=== PATIENT | female | born 1945 | race Caucasian/White ===

== ENCOUNTER 2019-05-24 13:56 | Inpatient (IN) | payer BC, OTHER ==
[~2019-05-24] VITALS: Ht 165.1 cm; Wt 89.8 kg
[2019-05-24 14:02] VITALS: BP_SYST 125
[2019-05-24] MEDS ORDERED: FURO-150 PO (14:46)
[2019-05-24] MEDS ORDERED: VALS80TA2 PO (14:46)
[2019-05-24] MEDS ORDERED: METO25TA3 PO (14:46)
[2019-05-24] MEDS ORDERED: ASPI-1155 PO (14:46)
[2019-05-24 15:06] LABS: BASOPHILS % (AUTO) 0.5 % (0.0-2.0); EOSINOPHILS % (AUTO) 1.4 % (0.0-4.0); HEMATOCRIT 37.1 % (36-48); HEMOGLOBIN 12.9 g/dL (12.0-16.0); LYMPHOCYTES # (AUTO) 1.1 K/uL (1.0-5.5); MEAN CORPUSCULAR HEMOGLOBIN 33 pg (27-31); MEAN CORPUSCULAR HGB CONC 35 % (32-36); MEAN CORPUSCULAR VOLUME 96 fL (79.0-98.0); MONOCYTES % (AUTO) 4.4 % (1.7-9.3); NEUTROPHILS # (AUTO) 13.6 K/uL (1.8-7.7); NEUTROPHILS % (AUTO) 86.7 % (40.0-70.0); PLATELET COUNT (AUTO) 359 K/uL (130-430); RED BLOOD CELL COUNT(AUTO) 3.85 MIL/uL (4.2-6.2); RED CELL DISTRIBUTION WIDTH 15.2 % (9.0-15.0); WHITE BLOOD COUNT (AUTO) 15.7 K/uL (4.8-10.8)
[2019-05-24 15:07] LABS: BASOPHILS # (AUTO) 0.1 K/uL (0.0-0.2); EOSINOPHILS # (AUTO) 0.2 K/uL (0.0-0.4); MONOCYTES # (AUTO) 0.7 K/uL (0.0-1.0)
[2019-05-24 15:17] LABS: CLARITY/URINE SLIGHTLY HAZY (CLEAR); COLOR,URINE BROWN (YELLOW)
[2019-05-24 15:18] LABS: BILIRUBIN,URINE 3+ (NEGATIVE); BLOOD, URINE NEGATIVE (NEGATIVE); GLUCOSE,URINE TRACE (NEGATIVE); KETONES,URINE TRACE (NEGATIVE); LEUKOCYTE ESTERASE ,URINE NEGATIVE (NEGATIVE); NITRITE, URINE NEGATIVE (NEGATIVE); PH,URINE 6.5 (5.0-8.0); PROTEIN URINE 1+ (NEGATIVE)
[2019-05-24 15:33] LABS: BACTERIA,URINE FEW /HPF (None Seen); RBC,URINE 0-3 /HPF (0-3)
[2019-05-24 15:34] LABS: COARSE GRANULAR CASTS,URINE 0-10 /LPF (None Seen)
[2019-05-24 15:38] LABS: MUCUS,URINE None Seen /LPF (None Seen)
[2019-05-24 15:53] LABS: SODIUM SERUM 137 mmol/L (136-145)
[2019-05-24 15:54] LABS: ANION GAP 14 (5-15); CHLORIDE 102 mmol/L (98-107); POTASSIUM 2.2 mmol/L (3.5-5.1)
[2019-05-24 15:55] LABS: CALCIUM 7.9 mg/dL (8.4-11.0); CREATININE 1.26 mg/dL (0.55-1.30); GLUCOSE 106 mg/dL (70-99); UREA NITROGEN, BLOOD 17 mg/dL (8-21)
[2019-05-24 15:57] LABS: ALANINE AMINOTRANSFERASE 91 U/L (12-78)
[2019-05-24] MEDS ORDERED: POTASSIUM CHLORIDE 20 MEQ TAB.PRT.SR PO ONE (16:00)
[2019-05-24] MEDS ORDERED: KCL 20 mEq in 100 mL (PREMIX) 100 ML IV ONE (16:00)
[2019-05-24] MEDS ORDERED: NACL 0.9% 1,000 ML IV ONE (16:00)
[2019-05-24 16:29] LABS: ASPARTATE AMINOTRANSFERASE 247 U/L (10-37)
[2019-05-24 16:42] LABS: INR 3.1 (0.8-1.2)
[2019-05-24 16:43] LABS: PROTHROMBIN TIME 30.8 SECS (9.5-12.5)
[2019-05-24 16:50] LABS: ALBUMIN 1.8 g/dL (3.4-4.8); LIPASE 56 U/L (73-393)
[2019-05-24] MEDS ORDERED: IOHEXOL 100 ML IV ONE (16:57)
[2019-05-24 17:32] VITALS: BP_SYST 127
[2019-05-24] MEDS ORDERED: FLU VACC TS2019(65UP)/MF59C/PF 45 MCG/0.5 ML SYRINGE I.M. PRN (17:45)
[2019-05-24] MEDS ORDERED: PIPERACILLIN/TAZO 3.375/DEX-IS 50 ML IV ONE (18:30)
[2019-05-24 20:00] VITALS: BP_SYST 108
[2019-05-24] MEDS: KCL 20 mEq in NS 1000 mL 1,000 ML IV SCH (20:50)
[2019-05-24] MEDS: PIPERACILLIN/TAZO 3.375/DEX-IS 50 ML IV SCH (23:07)
[2019-05-25 00:33] VITALS: BP_SYST 102
[2019-05-25] MEDS: KCL 20 mEq in NS 1000 mL 1,000 ML IV SCH ×3 (05:35→23:23)
[2019-05-25] MEDS: PIPERACILLIN/TAZO 3.375/DEX-IS 50 ML IV SCH ×4 (05:35→23:23)
[2019-05-25 07:14] LABS: HEPATITIS A AB, IgM Negative (Negative); HEPATITIS B CORE AB, IgM Negative (Negative); HEPATITIS B SURFACE AG Negative (Negative)
[2019-05-25 07:23] LABS: BASOPHILS % (AUTO) 0.3 % (0.0-2.0); EOSINOPHILS # (AUTO) 0.1 K/uL (0.0-0.4); HEMATOCRIT 34.1 % (36-48); HEMOGLOBIN 11.8 g/dL (12.0-16.0); LYMPHOCYTES # (AUTO) 0.7 K/uL (1.0-5.5); LYMPHOCYTES % (AUTO) 4.5 % (20.5-51.5); MEAN CORPUSCULAR HEMOGLOBIN 34 pg (27-31); MEAN CORPUSCULAR HGB CONC 35 % (32-36); MEAN CORPUSCULAR VOLUME 97 fL (79.0-98.0); MONOCYTES # (AUTO) 0.5 K/uL (0.0-1.0); MONOCYTES % (AUTO) 3.7 % (1.7-9.3); NEUTROPHILS # (AUTO) 13.2 K/uL (1.8-7.7); NEUTROPHILS % (AUTO) 90.5 % (40.0-70.0); PLATELET COUNT (AUTO) 270 K/uL (130-430); RED BLOOD CELL COUNT(AUTO) 3.52 MIL/uL (4.2-6.2); WHITE BLOOD COUNT (AUTO) 14.6 K/uL (4.8-10.8)
[2019-05-25 07:52] LABS: INR 4.2 (0.8-1.2); PROTHROMBIN TIME 40.9 SECS (9.5-12.5)
[2019-05-25 08:05] LABS: ALANINE AMINOTRANSFERASE 78 U/L (12-78); ALBUMIN 1.6 g/dL (3.4-4.8); ANION GAP 13 (5-15); ASPARTATE AMINOTRANSFERASE 193 U/L (10-37); CALCIUM 7.6 mg/dL (8.4-11.0); CHLORIDE 108 mmol/L (98-107); GLUCOSE 108 mg/dL (70-99); SODIUM SERUM 141 mmol/L (136-145); UREA NITROGEN, BLOOD 18 mg/dL (8-21)
[2019-05-25 08:24] VITALS: BP_SYST 112
[2019-05-25 08:28] LABS: POTASSIUM 2.5 mmol/L (3.5-5.1)
[2019-05-25 08:29] LABS: TOTAL BILIRUBIN 25.2 mg/dL (0.0-1.0)
[2019-05-25] MEDS ORDERED: POTASSIUM CHLORIDE 40 MEQ in NS 250 ML IV ONE ×2 (09:15→14:00)
[2019-05-25 12:41] VITALS: BP_SYST 122
[2019-05-25] MEDS: PHYTONADIONE 10 MG in NS 50 ML IV SCH (15:17)
[2019-05-25 16:57] VITALS: BP_SYST 130
[2019-05-25 20:00] VITALS: BP_SYST 118
[2019-05-26 00:51] VITALS: BP_SYST 99
[2019-05-26] MEDS: PIPERACILLIN/TAZO 3.375/DEX-IS 50 ML IV SCH (05:26)
[2019-05-26 07:06] LABS: FOLATE (FOLIC ACID) 8.2 ng/mL (>3.0)
[2019-05-26 08:15] VITALS: BP_SYST 127
[2019-05-26 08:33] LABS: BASOPHILS % (AUTO) 0.3 % (0.0-2.0); EOSINOPHILS # (AUTO) 0.1 K/uL (0.0-0.4); EOSINOPHILS % (AUTO) 1.2 % (0.0-4.0); HEMATOCRIT 32.1 % (36-48); HEMOGLOBIN 11.2 g/dL (12.0-16.0); LYMPHOCYTES # (AUTO) 0.9 K/uL (1.0-5.5); LYMPHOCYTES % (AUTO) 8.6 % (20.5-51.5); MEAN CORPUSCULAR HEMOGLOBIN 34 pg (27-31); MEAN CORPUSCULAR HGB CONC 35 % (32-36); MEAN CORPUSCULAR VOLUME 98 fL (79.0-98.0); MONOCYTES # (AUTO) 0.5 K/uL (0.0-1.0); MONOCYTES % (AUTO) 4.7 % (1.7-9.3); NEUTROPHILS # (AUTO) 9.2 K/uL (1.8-7.7); NEUTROPHILS % (AUTO) 85.2 % (40.0-70.0); PLATELET COUNT (AUTO) 229 K/uL (130-430); RED BLOOD CELL COUNT(AUTO) 3.29 MIL/uL (4.2-6.2); RED CELL DISTRIBUTION WIDTH 15.2 % (9.0-15.0); WHITE BLOOD COUNT (AUTO) 10.8 K/uL (4.8-10.8)
[2019-05-26 08:46] LABS: INR 1.7 (0.8-1.2); PROTHROMBIN TIME 16.7 SECS (9.5-12.5)
[2019-05-26 08:59] LABS: ALANINE AMINOTRANSFERASE 78 U/L (12-78); ALBUMIN 1.5 g/dL (3.4-4.8); ANION GAP 11 (5-15); ASPARTATE AMINOTRANSFERASE 184 U/L (10-37); CALCIUM 7.7 mg/dL (8.4-11.0); CHLORIDE 113 mmol/L (98-107); CREATININE 1.37 mg/dL (0.55-1.30); GLUCOSE 81 mg/dL (70-99); POTASSIUM 3.3 mmol/L (3.5-5.1); SODIUM SERUM 144 mmol/L (136-145); UREA NITROGEN, BLOOD 19 mg/dL (8-21)
[2019-05-26] MEDS: PHYTONADIONE 10 MG in NS 50 ML IV SCH (09:15)
[2019-05-26 10:49] LABS: TOTAL BILIRUBIN 26.7 mg/dL (0.0-1.0)
[2019-05-26 12:20] VITALS: BP_SYST 102
[2019-05-26] MEDS: PIPERACILLIN/TAZOBACTAM 2.25 GM/ D5W 50 ML IV SCH ×4 (12:46→19:08)
[2019-05-26] MEDS: KCL 20 mEq in NS 1000 mL 1,000 ML IV SCH (14:11)
[2019-05-26 16:10] VITALS: BP_SYST 106
[2019-05-26 19:38] VITALS: BP_SYST 109
== END 2019-05-26 20:55 | DRG 433 ==
LOC: SED 13:56 → STU 16:36
PROVIDERS: ADMIT Internal Medicine; ATTEND Internal Medicine
DX: K74.60 Unspecified cirrhosis of liver (principal); D68.9 Coagulation defect, unspecified; R18.8 Other ascites; D72.829 Elevated white blood cell count, unspecified; E87.6 Hypokalemia; I11.0 Hypertensive heart disease with heart failure; I50.9 Heart failure, unspecified; K59.00 Constipation, unspecified; K76.9 Liver disease, unspecified; R23.1 Pallor; E56.1 Deficiency of vitamin K; K80.20 Calculus of gallbladder without cholecystitis without obstruction; Z79.899 Other long term (current) drug therapy; Z79.82 Long term (current) use of aspirin
CPT/HCPCS: 36415; 71045; 74181; 76700-TC; 80053; 80074; 81000-TC; 82248-TC; 82607; 82746; 83605; 83615-TC; 83690-TC; 85025; 85044-TC; 85384-TC; 85610-TC; 85730-TC; 87040-TC; 87086; 93306; 96366; 99285; G0378; J2543; J3430; J3480; J7030; J7050; J7060; Q9967